=== PATIENT | male | born 1970 | race Two or more races ===

== ENCOUNTER 2018-01-25 13:15 | Inpatient (IN) | payer OTHER ==
[~2018-01-25] VITALS: Ht 175.3 cm; Wt 127.9 kg
[2018-02-10] MEDS ORDERED: OMEPRAZOLE20 MG PO (10:59)
[2018-02-10] MEDS ORDERED: INTESTINEX680 M1 PO (10:59)
[2018-02-10] MEDS ORDERED: CIPRO500 MG PO (10:59)
[2018-02-10] MEDS ORDERED: FLAGYL500MG PO (10:59)
[2018-02-10] MEDS ORDERED: IMODIUM A-D2 MG PO (10:59)
[2018-02-10] MEDS ORDERED: PERCOCET 5-3251 EACH PO (10:59)
[2018-02-10] MEDS ORDERED: QUESTRAN PACKET4 GM PO (10:59)
== END 2018-02-10 11:19 | disposition home or self-care (01) | DRG 330 ==
LOC: SURH 02-01 07:00 → O/R 02-01 08:55 → SURH 02-01 13:15
PROVIDERS: Surgery
PROC: 07TC4ZZ Resection of Pelvis Lymphatic, Percutaneous Endoscopic Approach (ICD-10-PCS; 2018-02-01)
PROC: 0DTL4ZZ Resection of Transverse Colon, Percutaneous Endoscopic Approach (ICD-10-PCS; principal; 2018-02-01 07:00)
PROC: 4A12X4Z Monitoring of Cardiac Electrical Activity, External Approach (ICD-10-PCS; 2018-02-02)
PROC: 4A033R1 Measurement of Arterial Saturation, Peripheral, Percutaneous Approach (ICD-10-PCS; 2018-02-02)
DX: C18.4 Malignant neoplasm of transverse colon (principal); J95.89 Other postprocedural complications and disorders of respiratory system, not elsewhere classified; J98.11 Atelectasis; G47.33 Obstructive sleep apnea (adult) (pediatric); I11.9 Hypertensive heart disease without heart failure; R73.02 Impaired glucose tolerance (oral)

== ENCOUNTER 2021-08-03 08:58 | Day surgery (SDC) | payer OTHER ==
[~2021-08-03 08:58] MED LIST: CIPRO500 MG PO; DIPHENOXYLATE-1 EACH PO; FLAGYL500MG PO; IMODIUM A-D2 MG PO; INTESTINEX680 M1 PO; LEVSIN/SL0.125 MG PO; OMEPRAZOLE20 MG PO; PEPCID AC20 MG PO; PERCOCET 5-3251 EACH PO; QUESTRAN PACKET4 GM PO
== END 2021-08-03 14:10 | disposition home or self-care (01) ==
LOC: AMB-ENDOS 08:58
PROVIDERS: ATTEND Surgery
DX: D12.8 Benign neoplasm of rectum (principal); K64.8 Other hemorrhoids

== ENCOUNTER → 2025-01-27 | Emergency (ER) | payer OTHER ==
[~2025-01-27] VITALS: Ht 172.7 cm; Wt 144.7 kg
== END | disposition home or self-care (01) ==
LOC: ER 10:46
DX: G44.209 Tension-type headache, unspecified, not intractable (principal); R07.89 Other chest pain